=== PATIENT | female | born 2005 | race Caucasian/White ===

== ENCOUNTER → 2025-02-20 | Emergency (ER) | payer SELFPAY ==
[~2025-02-20] VITALS: Ht 165.1 cm; Wt 68.1 kg
[2025-02-21 00:08] VITALS: BP 122/84; PULSE 93; RESP 18; TEMP 98.1; O2SAT 100
[2025-02-21 01:46] LABS: PLATELET COUNT (AUTO) 343 K/uL (150-450); RED BLOOD CELL COUNT(AUTO) 5.20 MIL/uL (4.00-5.20); RED CELL DISTRIBUTION WIDTH 13.4 % (11.5-14.5); WHITE BLOOD COUNT (AUTO) 8.3 K/uL (4.5-11.0)
[2025-02-21 02:20] LABS: CALCIUM, TOTAL 9.1 mg/dL (8.8-10.5); CREATININE 0.75 mg/dL (0.60-1.30); GLOMERULAR FILTR. RATE CALC > 60 mL/min (>60); GLUCOSE,RANDOM 105 mg/dL (70-110); SODIUM SERUM 140 mmol/L (136-145); UREA NITROGEN, BLOOD 15 mg/dL (7-18)
== END | disposition home or self-care (01) ==
LOC: EMS 23:49
DX: F10.129 Alcohol abuse with intoxication, unspecified (principal); Y90.4 Blood alcohol level of 80-99 mg/100 ml
CPT/HCPCS: 99283; 80048; 85025; 36415; G0480